=== PATIENT | male | born 2005 | race Two or more races ===

== ENCOUNTER 2025-06-05 22:04 | Emergency (ER) | payer MEDICAID, SELFPAY ==
[2025-06-05 22:38] VITALS: BP 132/85; PULSE 107; RESP 18; TEMP 37; O2SAT 96
--- NOTE | 2025-06-05 23:02 | EDNOTE_ITS ---
ED Skin Abcess FB-RME/HPI General Chief complaint: Skin/Abscess/Foreign Body Stated complaint: DISCHARGE FROM [facility] Time Seen by Provider: 06/05/25 22:35 Arrival date/time: 06/05/25 22:04 This is a case of 20-year-old male with no medical history came in in the emergency room due to pain redness and discharge from the umbilicus for 2 weeks due to persistence of the symptoms this patient decided to sought consult here in the emergency room patient denies any fever chills abdominal pain nausea vomiting patient denies any injury or trauma persistence of the symptoms this patient decided to sought consult here in the emergency room Limitations: no limitations Related Data Previous Rx's ?Medication ?Instructions ?Recorded clotrimazole 1 % topical cream 1 applic topical BID 2 weeks #30 06/05/25 grams mupirocin 2 % topical ointment 1 applic topical BID 2 weeks #22 06/05/25 grams sulfamethoxazole 800 1 tab PO BID 10 days #20 tab s 06/05/25 mg-trimethoprim 160 mg tablet (Bactrim DS) Allergies Allergy/AdvReac Type Severity Reaction Status Date / Time No Known Allergies Allergy Verified 06/05/25 22:06 Review of Systems Review of Systems Systems Reviewed: All systems reviewed, normal except as documented Constitutional Constitutional: Reports system reviewed and no additional complaints, except as documented and Reports as per HPI Cardiovascular Cardiovascular: Reports system reviewed and no additional complaints, except as documented and Reports as per HPI Respiratory Respiratory: Reports system reviewed and no additional complaints, except as documented and Reports as per HPI Gastrointestinal Gastrointestinal: Reports system reviewed and no additional complaints, except as documented, Reports as per HPI and Denies abdominal pain Genitourinary Genitourinary: Reports system reviewed and no additional complaints, except as documented and Reports as per HPI Musculoskeletal Musculoskeletal: Reports system reviewed and no additional complaints, except as documented and Reports as per HPI Neurologic Neurologic: Reports system reviewed and no additional complaints, except as documented and Reports as per HPI ED Exam General Limitations: Present no limitations General appearance: Present alert, in no apparent distress and other (Patient is awake alert oriented not in distress nontoxic looking well-hydrated well- nourished) Head Head exam: Present atraumatic; Absent normocephalic or normal inspection Eye Eye exam: Present normal appearance, PERRL and EOMI ENT ENT exam: Present normal exam, normal oropharynx and mucous membranes moist Neck Neck exam: Present normal inspection, full ROM and trachea midline; Absent tenderness, meningismus or lymphadenopathy Chest Chest inspection: Present normal inspection and symmetric chest wall rise; Absent tenderness Respiratory Respiratory exam: Present normal lung sounds bilaterally; Absent respiratory distress, wheezes, stridor, accessory muscle use or prolonged expiratory phase Cardiovascular Cardiovascular exam: Present regular rate, normal rhythm and normal heart sounds; Absent bradycardia, tachycardia, irregular rhythm, systolic murmur or diastolic murmur Abdominal Exam Abdominal exam: Present soft and normal bowel sounds; Absent distention, tenderness, guarding, rebound, rigidity, diminished bowel sounds, hyperactive bowel sounds, hypoactive bowel sounds, organomegaly, trauma, incision, psoas sign, obturator sign, heel tap sign, Yusuf's sign, Rovsing's sign, tenderness at McBurney's Point, ascites, mass, bruit, pulsatile mass, hernia or scar Extremities Exam Extremities exam: Present normal inspection and full ROM Back Exam Back exam: Present normal inspection and full ROM Neurological Exam Neurological exam: Present alert, oriented X3, CN II-XII intact, normal gait and reflexes normal; Absent motor sensory deficit Psychiatric Psychiatric exam: Present normal affect and normal mood Skin Skin exam: Present warm, dry, intact, normal color and other (Noted yellowish discharge coming from the umbilicus with redness no tenderness no fluctuance not indurated redness noted around the umbilicus suggestive of cellulitis) Course Quality Measures none Orders Category Date Time Status Wound Culture and Gram Stain Stat Lab 06/05/25 22:51 Ordered Clindamycin Vial [Cleocin vial] Med 06/05/25 22:51 Discontinued 600 mg IM X1 ONE cefTRIAXone [Rocephin] 1,000 mg Med 06/05/25 23:01 Ordered Lidocaine 1% 20 ml [Xylocaine 1% 20 ML] 2.1 ml IM X1 Vital Signs Vital signs: Vital Signs Temperature 98.6 F 06/05/25 22:38 Pulse Rate 107 H 06/05/25 22:38 Respiratory Rate 18 06/05/25 22:38 Blood Pressure 132/85 H 06/05/25 22:38 Pulse Oximetry (%) 96 06/05/25 22:38 Oxygen Delivery Method Room Air 06/05/25 22:38 Oxygen saturation is 96% room air normal Skin / Abscess / Foreign Body MDM Narrative MDM Narrative:: This is a case of 20-year-old male with no medical history came in in the emergency room due to pain redness and discharge from the umbilicus for 2 weeks due to persistence of the symptoms this patient decided to sought consult here in the emergency room patient denies any fever chills abdominal pain nausea vomiting patient denies any injury or trauma persistence of the symptoms this patient decided to sought consult here in the emergency room physical examination patient is awake alert oriented not in distress nontoxic looking well-hydrated well-nourished afebrile not tachycardic not tachypneic not hypoxic patient abdominal exam is benign soft normal active bowel sounds nontender no guarding no rebound no rigidity negative psoas negative straight or negative Rovsing's negative McBurney's negative Yusuf sign negative CVA tenderness noted redness no swelling yellowish discharge coming from the umbilicus no fluctuance not indurated with minimal redness around the umbilicus suggestive of cellulitis patient was given ceftriaxone IM here in the emergency room a wound culture was sent pending result patient was discharged with Bactroban and clotrimazole ointment and was discharged also with Bactrim and cephalexin for infection patient will follow-up with PCP in 2 days for reevaluation and for any worsening symptoms or any emergent concern return precaution to the ER was advised Patient was discharged with comfortable condition walking with stable gait. Patient verbalized no further complains explained diagnosis and answered patient question. Patient is comfortable with the proposed management plan including the need to follow up with his/her primary care physician and any specialist if applicable Discussed patient for any urgent condition or worsening sx, He/She needed to go to emergency room immediately or call 911. Patient acknowledge the responsibility to follow up as instructed and to monitor her/his symptoms. For any persistence of the symptoms for more than 3-5 days return precaution advised. Discussed the result of the test and was given printed discharge instruction Patient data External records reviewed:: [facility] previous records Clinical information provided by:: patient Social determinants that could affect healthcare access:: none Patient has the following chronic illnesses:: None How is presenting disease/condition affected by chronic disease/condition?: no chronic disease Evaluation data The following diagnostics were reviewed and interpreted by me:: other (specify) (None) Lab and/or radiology exams considered but not ordered:: None Interpretation Summary: None Medications / Prescriptions Medications or Prescriptions considered but not ordered:: Given Medication administrations:: Medication Administration History Ceftriaxone Sodium 1,000 mg/ (Lidocaine HCl 2.1 ml) 0 mg IM X1 ONE Stop: 06/05/25 23:02 Discontinued Medications Clindamycin Phosphate (Clindamycin Phos Inj 150 Mg/Ml Vial 6 Ml) 600 mg IM X1 ONE Stop: 06/05/25 22:52 Given Consultations Consultation(s) initiated? (list below): No Diagnosis Skin/Abscess Differential Diagnosis: abscess of skin or subcutaneous tissue and cellulitis Most likely diagnosis given after review of the tests above:: Abscess cellulitis umbilicus Admission Indicated Admission indicated?: not indicated Explain why admission is indicated or not indicated:: Not indicated Admission Request Was there a request for admission?: No Admission Attestation Admission request attestation: Not indicated Disposition Plan Disposition Plan: Discharge Discharge Attestation Discharge Attestation: The patient and all family members were given an opportunity to ask questions and understood the discharge instructions. Discharge instructions specifically effects, indications for sooner follow up or return to the emergency department, and the expected course of current diagnosis. Patient condition: Stable Discharge Plan Plan Patient Disposition: HOME (Self Care) Patient condition on transfer: Stable Prescriptions/Referrals Prescriptions/Med Rec: New sulfamethoxazole-trimethoprim [Bactrim DS] 800-160 mg tablet 1 tab PO BID 10 Days Qty: 20 0RF mupirocin 2 % ointment 1 applic topical BID 14 Days Qty: 22 0RF Rx Instructions: Mix with co-trimoxazole cream and apply to the affected area clotrimazole 1 % cream 1 applic topical BID 14 Days Qty: 30 0RF Rx Instructions: Mix with Bactroban to apply to the affected area Problem List Clinical Impression: Abscess or cellulitis of umbilicus Patient/Caregiver Discharge Instructions Education Materials: ED Abscess Antibiotic ..., ED Cellulitis, ED Wound Care Additional Instructions: Return to the emergency room in 2 days for reevaluation worsening symptoms or any emergent concern call 911 or go to the nearest emergency room follow-up with your primary care physician in 2 days for reevaluation and wound check finish the course of antibiotic keep the area clean and dry Print Language: Vietnamese Stand Alone Forms: Megan Award Info., Patient Portal Info Letter PA/KHUSHBU Supervising Physician BENSON/KHUSHBU Supervising Physician: Dr. Anish Peraza
[2025-06-06] MEDS: cefTRIAXone 1,000 MG, LIDOCAINE 1% 20 ML 2.1 ML IM (01:00)
== END 2025-06-06 01:34 | disposition home or self-care (01) ==
PROVIDERS: Emergency Provider Emergency Medicine
DX: L02.216 Cutaneous abscess of umbilicus (principal); L03.316 Cellulitis of umbilicus
CPT/HCPCS: 87070; 87205; 96372; 99284; J0696; J3490